=== PATIENT | male | born 2000 ===

== ENCOUNTER 2023-11-12 08:52 | Emergency (ER) | payer OTHER, SELFPAY ==
--- NOTE | ~2023-11-12 | CT_ITS ---
EXAMINATION: CT abdomen pelvis w con DATE: 11/12/2023 09:48 INDICATION: Left-sided abdominal pain TECHNIQUE: Computed tomography (CT) of the abdomen and pelvis was performed with 100 mL Omnipaque-350 intravenous contrast. Automated exposure control and iterative reconstruction technique were employe d. The dose-length product was 214.22 mGy-cm. COMPARISON: None FINDINGS: Lung bases are clear. Heart size is normal. No pericardial or pleural effusion. Focal hepatic steatos is at the ligamentum teres. Gallbladder, spleen, pancreas, bilateral adrenal glands and right kidney are normal. A millimeter left renal cyst. Bowels including the appendix are normal. Bladder is normal . No free intraperitoneal gas or fluid. No pathologically enlarged abdominal or pelvic lymphadenopath y. IMPRESSION: 1. No acute intra-abdominal/pelvic process. Reviewed, dictated and finalized at location A.
[2023-11-12 08:55] VITALS: BP 123/74; PULSE 79; RESP 16; TEMP 36.6; O2SAT 100
[2023-11-12 09:03] VITALS: BP 132/80; PULSE 68; RESP 19; O2SAT 100
--- NOTE | 2023-11-12 09:09 | ED.GENADULT ---
HPI - General Adult General Chief complaint: Abdominal Pain Stated complaint: LUQ ABD pain Time Seen by Provider: 11/12/23 09:02 History of Present Illness HPI narrative: This is a 22-year-old male presenting with 4 hours of left abdominal pain. Patient describes the pain as a squeezing sensation in the left upper quadrant. The pain is severe, it comes and goes. He has never had pain like this before there are no exacerbating alleviating factors. Patient was started on Protonix and Pepcid 5 days ago for reflux symptoms. Patient denies fevers chills nausea vomiting or diarrhea. Last bowel movement was earlier today and was normal. Patient has been able to tolerate Related Data Allergies Allergy/AdvReac Type Severity Reaction Status Date / Time No Known Allergies Allergy Verified 11/12/23 09:04 Exam Narrative: APPEARANCE: No apparent distress. Nontoxic Head: atraumatic. EYES: EOMI, NOSE: Atraumatic NECK: Trachea midline RESPIRATORY: No increased rate of breathing CARDIOVASCULAR: RRR, ABDOMINAL: Non-distended soft, tender no guarding rebound, no CVA tenderness MUSCULOSKELETAl: No obvious deformities NEURO: Alert. Moving 4/4 extremities SKIN:: Warm, dry. Normal color PSYCHIATRIC: Normal affect Course Vital Signs Vital signs: Vital Signs Temperature 97.8 F 11/12/23 08:55 Pulse Rate 79 11/12/23 08:55 Respiratory Rate 16 11/12/23 08:55 Blood Pressure 123/74 11/12/23 08:55 Pulse Oximetry 100 11/12/23 08:55 Oxygen Delivery Room Air 11/12/23 08:55 Temperature 97.8 F 11/12/23 08:55 Pulse Rate 68 11/12/23 09:03 Respiratory Rate 19 11/12/23 09:03 Blood Pressure 132/80 11/12/23 09:03 Pulse Oximetry 100 11/12/23 09:03 Oxygen Delivery Room Air 11/12/23 08:55 Medical Decision Making [facility] Narrative Medical decision making narrative: -Course: This is a 22 male with 4 hours of left upper quadrant pain. Laboratory studies normal. CT unremarkable. On re-evaluation patient is pain-free with benign abdominal exam. His vital signs are stable and he is tolerating p.o.. Patient will be discharged Bentyl instructed to follow-up with his primary care physician in 2 days. He has been given return precautions. -DDX includes but is not limited to: Colonic spasm, gastroenteritis, gastritis, splenic infarct, colitis, kidney stone -Independent interpretation of studies: Labs imaging reviewed -Interventions: 2 L normal saline, 20 mg Pepcid, 20 mg Bentyl -Shared decision making / Disposition: Discharged -RX Bentyl Vital Signs Vital Signs: Vital Signs Temperature 97.8 F 11/12/23 08:55 Pulse Rate 79 11/12/23 08:55 Respiratory Rate 16 11/12/23 08:55 Blood Pressure 123/74 11/12/23 08:55 Pulse Oximetry 100 11/12/23 08:55 Oxygen Delivery Room Air 11/12/23 08:55 Temperature 97.8 F 11/12/23 08:55 Pulse Rate 68 11/12/23 09:03 Respiratory Rate 19 11/12/23 09:03 Blood Pressure 132/80 11/12/23 09:03 Pulse Oximetry 100 11/12/23 09:03 Oxygen Delivery Room Air 11/12/23 08:55 Lab Data 11/12/23 09:15 11/12/23 09:15 Labs: Lab Results 11/12/23 11/12/23 Range/Units 09:15 10:15 WBC 5.2 (4.5-10.0) K/mm3 RBC 5.15 (4.6-6.20) M/mm3 Hgb 16.5 (14.0-18.0) g/dL Hct 46.3 (42.0-52.0) % MCV 89.9 (80-100) fl MCH 32.0 (26-34) pg MCHC 35.6 (32-36) g/dl RDW 11.5 (11.5-14.5) % Plt Count 187 (150-375) k/mm3 MPV 10.9 H (7.4-10.4) fl Immature Gran % (Auto) 0.0 (0-0.5) % Neut % (Auto) 62.8 (45.5-73.1) % Lymph % (Auto) 24.3 (18.3-44.2) % Parke % (Auto) 6.9 (2.6-8.5) % Eos % (Auto) 5.4 H (0-4.4) % Baso % (Auto) 0.6 (0.2-1.2) % Lymph # (Auto) 1.27 (0.9-3.2) K/mm3 Parke # (Auto) 0.4 (0.1-0.6) K/mm3 Eos # (Auto) 0.3 (0-0.3) K/mm3 Baso # (Auto) 0.0 (0.0-0.1) K/mm3 Abs Immat Gran (auto) 0.00 (0.00-0.031) K/mm3 Absolute Neuts (auto) 3.3 (1.3-6.
[2023-11-12] MEDS: SODIUM CHLORIDE 0.9% IV 1,000 ML 999 ML IV CONT (09:18)
[2023-11-12] MEDS: FAMOTIDINE 20 MG/2 ML VIAL IV PUSH (09:19)
[2023-11-12] MEDS: DICYCLOMINE HCL INJ 20 MG/2 ML VIAL IM (09:20)
[2023-11-12 09:21] LABS: Basophils Percent Auto 0.6 % (0.2-1.2); Eosinophils Absolute Auto 0.3 K/mm3 (0-0.3); Eosinophils Percent Auto 5.4 % (0-4.4); Hematocrit 46.3 % (42.0-52.0); Hemoglobin 16.5 g/dL (14.0-18.0); Lymphocytes Absolute Auto 1.27 K/mm3 (0.9-3.2); Lymphocytes Percent Auto 24.3 % (18.3-44.2); Mean Corpuscular HGB Conc 35.6 g/dl (32-36); Mean Corpuscular Volume 89.9 fl (80-100); Mean Platelet Volume 10.9 fl (7.4-10.4); Monocytes Absolute Auto 0.4 K/mm3 (0.1-0.6); Monocytes Percent Auto 6.9 % (2.6-8.5); Neutrophils Absolute Auto 3.3 K/mm3 (1.3-6.7); Neutrophils Percent Auto 62.8 % (45.5-73.1); Platelet Count Result 187 k/mm3 (150-375); Red Blood Count 5.15 M/mm3 (4.6-6.20); Red Cell Distribution Width 11.5 % (11.5-14.5); White Blood Count 5.2 K/mm3 (4.5-10.0)
[2023-11-12 09:33] LABS: Lactic Acid Reflex 0.8 mmol/L (0.7-2.0)
[2023-11-12 09:35] LABS: Alanine Aminotransferase 20 U/L (6-50); Albumin Level 4.7 g/dL (3.5-5.1); Alkaline Phosphatase 74 U/L (38-126); Anion Gap 9 mmol/L (4-12); Aspartate Amino Transferase 22 U/L (17-59); Bilirubin,Total 0.7 mg/dL (0.2-1.3); Blood Urea Nitrogen 14 mg/dL (9-20); Calcium 9.2 mg/dL (8.4-10.2); Carbon Dioxide 28 mmol/L (22-30); Chloride 101 mmol/L (98-107); Estimated CRCL calculation 103 ml/min; Estimated Glomerular Filt Rate > 60; Glucose 101 mg/dL (65-110); Lipase 65 U/L (23-300); Potassium 3.8 mmol/L (3.4-5.0); Sodium 138 mmol/L (137-145)
[2023-11-12 10:22] LABS: Appearance Urine Clear (Clear); Bilirubin Urine Negative (Negative); Blood Urine Negative (Negative); Color Urine Yellow (Yellow); Glucose Urine UA Negative (Negative); Ketones Urine Negative (Negative); Leukocyte Esterase Ur Negative LEU/UL (Negative); Nitrate Urine Negative (Negative); Protein Urine Negative (Negative); Specific Grav Ur 1.028 (1.001-1.035); Urobilinogen Urine 0.2 mg/dL (<2.0)
[2023-11-12 10:30] LABS: Add Urine Microscopic? NO
[2023-11-12 11:05] VITALS: BP 109/75; PULSE 74; RESP 12; TEMP 36.4; O2SAT 100
== END 2023-11-12 11:08 | disposition home or self-care (01) ==
PROVIDERS: Emergency Provider Emergency Medicine
DX: R10.12 Left upper quadrant pain (principal)
CPT/HCPCS: 36415; 74177; 80053; 81003; 83605; 83690; 85025; 96361; 96372; 96374; 99284; J0500; J7030; Q9967